=== PATIENT | female | born 1995 ===

== ENCOUNTER 2017-02-23 15:58 | Inpatient (IN) ==
[2017-02-23] MEDS ORDERED: LACTATED RINGERS 1,000 ML IV PRN (16:18)
[2017-02-23] MEDS ORDERED: ONDANSETRON 4 MG/2 ML VIAL IV PRN (16:18)
[2017-02-23] MEDS ORDERED: MEPERIDINE 50 MG/1 ML VIAL IM PRN (16:18)
[2017-02-23] MEDS ORDERED: BUTORPHANOL 1 MG/ML VIAL IV PRN (16:18)
[2017-02-23] MEDS ORDERED: LACTATED RINGERS 1,000 ML IV ONE (16:21)
[2017-02-23] MEDS ORDERED: ONDANSETRON 4 MG/2 ML VIAL IV ONE (16:21)
[2017-02-23] MEDS ORDERED: FAMOTIDINE 20 MG/2 ML VIAL IV ONE (16:21)
[2017-02-23] MEDS ORDERED: ePHEDrine 50 MG/ML AMP IV PRN (16:21)
[2017-02-23] MEDS ORDERED: CITRIC ACID/SODIUM CITRATE 30 ML UDCUP PO ONE (16:21)
[2017-02-23] MEDS ORDERED: hydrOXYzine HCL 25 MG/1 ML VIAL IM PRN (16:21)
[2017-02-23] MEDS ORDERED: diphenhydrAMINE 50 MG/1 ML VIAL IV PRN ×2 (16:21)
[2017-02-23] MEDS ORDERED: PROMETHAZINE 25 MG/1 ML VIAL IM ONE (16:21)
[2017-02-23] MEDS ORDERED: OXYTOCIN/LR 20 UNIT/1,000 ML BAG IV SCH (16:30)
[2017-02-23 16:39] LABS: Basophils % 0.2 % (0.0-0.8); Eosinophils # 0.1 10*3/uL (0.0-0.87); Eosinophils % 0.9 % (0.00-10.9); Hematocrit 30.8 VOL% (35.7-47.0); Hemoglobin 10.6 GM/DL (12.0-16.0); Immature Granulocytes % 0.4 %; Immature Granulocytes Absolute 0.03 #; Lymphocytes # 2.1 10*3/uL (1.4-4.0); Lymphocytes % 25.9 % (21.3-54.2); Mean Corpuscular HGB Conc 34.4 GM/DL (32-36); Mean Corpuscular Hemoglobin 28 PG (27-34); Mean Corpuscular Volume 80.8 FL (87-102); Mean Platelet Volume 10.2 FL (9.6-12.0); Monocytes # 0.5 10*3/uL (0.11-0.8); Monocytes % 6.4 % (1.7-12.7); Neutrophils # 5.4 10*3/uL (1.4-7.4); Neutrophils % 66.2 % (38.7-73.9); Platelet Count 280 T/CUMM (130-400); Red Blood Count 3.81 MC/CUMM (3.8-5.5); Red Cell Distribution Width 13.8 % (9.3-17.3); White Blood Count 8.2 T/CUMM (4-12)
[2017-02-23 17:07] LABS: Alanine Aminotransferase 16 U/L (13-56); Albumin 2.8 G/DL (3.4-5.0); Alkaline Phosphatase 194 U/L (45-117); Aspartate Amino Transferase 21 U/L (0-37); Bilirubin,Total < 0.39 MG/DL (0.2-1.0); Blood Urea Nitrogen 13 MG/DL (7-18); Calcium 8.6 MG/DL (8.5-10.1); Glucose 75 MG/DL (74-106); Osmolality,Calculated 275.5 MOS/KG (273-304); Potassium 4.1 MMOL/L (3.5-5.1); Sodium 139 MMOL/L (136-145); Total Protein 6.8 G/DL (6.4-8.3); Uric Acid 4.9 MG/DL (2.6-6.0)
[2017-02-23 17:28] LABS: Rubella Antibody IgG 5.1 IU/ML
[2017-02-23] MEDS: LACTATED RINGERS 1,000 ML IV SCH (17:57)
--- NOTE | 2017-02-23 18:15 | History & Physical Report ---
Assessment and Plan (1) Active labor Status: Acute Current Visit: Yes History of Present Illness Chief complaint: Active labor, 5 cm History of present illness: Ms. Chapman is a 22 year old female 1 para 0 EDC is a 2417 presented to the office and was examined and found to be 4-1/2-5 cm dilated 90% effaced at a -1 station, patient's heart tones are category 1, no leaking of fluid no vaginal bleeding. Risks and benefits were thoroughly discussed with this patient in full agreement and will be admitted for further management and an epidural when appropriate Home Medications Medication Instructions Recorded Confirmed Type Pnv No.95/Ferrous Fum/Folic AC 1 tablet PO DAILY 02/23/17 02/23/17 History [ Tablet] Allergies Allergy/AdvReac Type Severity Reaction Status Date / Time No Known Allergies Allergy Verified 02/23/17 16:18 Medical,Surgical,& Family Hx - Medical History Reproductive: No history of: Ectopic , Complication - Surgical History Reproductive Surgeries: Patient denies;: Section - Social History Smoking Status: Never smoker Frequency of Alcohol Use: None Type of Drug Use: None Exam - Constitutional General appearance: mild distress - Head Head exam: Present: normal inspection - Eye Eye exam: Present: EOMI Pupils: Present: ELISABETH - ENT ENT exam: Present: normal exam - Neck Neck exam: Present: normal inspection - Cardiovascular Cardiovascular exam: Present: regular rate and rhythm - GI/Abdominal GI/Abdominal exam: Present: normal bowel sounds - Extremities Exam Extremities exam: Present: normal inspection - Back Exam Back exam: Present: normal inspection - Neurological Exam Neurological exam: Present: alert, oriented X3 - Psychiatric Psychiatric exam: Present: normal affect - Skin Skin exam: Present: normal color Results - Labs CBC & BMP: 02/23/17 16:32 02/23/17 16:32 Quality Measures - VTE Contraindication to Pharmacological VTE Prophylaxis: Clinical assessment deems Pt at low risk, no prophalaxis needed
[2017-02-23] MEDS ORDERED: ONDANSETRON 4 MG/2 ML VIAL ONE (19:38)
[2017-02-23] MEDS ORDERED: PROPOFOL 200 MG/20 ML VIAL IV ONE (19:38)
[2017-02-23] MEDS ORDERED: SUCCINYLCHOLINE 200 MG/10 ML VIAL ONE (19:38)
[2017-02-23] MEDS: fentaNYL 2 MCG/ROPIV 0.2% EPID 150 ML EPIDURAL SCH (19:50)
[2017-02-23 21:49] LABS: Apearance,Urine CLEAR (Clear); Bacteria,Urine Occasional /HPF (Few); Bilirubin,Urine Negative (Negative); Blood, Urine Negative (Negative); Glucose,Urine (UA) Negative (Negative); Ketones,Urine 20 mg/dL (Negative); Mucus,Urine Occasional /LPF (Occasional); Nitrite,Urine Negative (Negative); Protein,Urine Negative; RBC,Urine <1 /HPF (0-4); Squamous Epithelial Cell,Urine Occasional /HPF (0-10); Transitional Epi Cells,Urine Occasional /HPF (<1); Urine Color Yellow (Yellow); Urine Specific Gravity 1.024 (1.001-1.035); WBC,Urine <1 /HPF (0-6)
[2017-02-24] MEDS: LACTATED RINGERS 1,000 ML IV SCH ×2 (04:07→12:24)
[2017-02-24] MEDS: fentaNYL 2 MCG/ROPIV 0.2% EPID 150 ML EPIDURAL SCH (07:20)
--- NOTE | 2017-02-24 09:47 | Event Note ---
0935: The patient is 6 cm dilated with bulging POW. Artificial rupture membranes was performed with clear fluid noted. The patient 6 cm dilated/90% effaced/vertex presenting at a -1 station.
[2017-02-24] MEDS ORDERED: OXYTOCIN 10 UNIT/ML VIAL ONE ×2 (17:41→17:42)
[2017-02-24] MEDS ORDERED: METHYLERGONOVINE 0.2 MG/1 ML AMP ONE (17:49)
[2017-02-24] MEDS ORDERED: fentaNYL 100 MCG/2 ML VIAL ONE (18:24)
[2017-02-24 18:25] LABS: Cord Arterial Blood HCO3 20.4 MMOL/L
[2017-02-24 18:29] LABS: Cord Venous Blood HCO3 21.2 MMOL/L; Cord Venous Blood PCO2 46.7 MMHG; Cord Venous Blood PO2 37.7
[2017-02-24] MEDS ORDERED: ACETAMINOPHEN 325 MG TABLET PO PRN (18:42)
[2017-02-24] MEDS ORDERED: ONDANSETRON 4 MG/2 ML VIAL IV PRN (18:42)
[2017-02-24] MEDS ORDERED: OXYTOCIN/LR 20 UNIT/1,000 ML BAG IV ONE ×2 (18:42→20:31)
--- NOTE | 2017-02-24 18:47 | Operative Note ---
Date of procedure: 02/24/17 Procedure: Preoperative diagnosis: Failure to progress, CPD Postoperative diagnosis: Same Anesthesia:[] General anesthesia Estimated blood loss: [] 300 Surgeon: Dr. Hackett Findings: [] Male , It molding, 8 pounds, delivery at 1740 5 PM, Apgars was 9 at 1 minute 9 at 5 minutes, cord blood and cord gas obtained Complications: None Procedure: Low transverse section The patient was taken to the operating suite heart tones were obtained prior to and after regional anesthesia was obtained. She was placed in supine position her abdomen was prepped and draped in usual manner for major abdominal surgery. Through an abdominal incision the skin, subcutaneous, fascial layer and peritoneal the abdomen was entered. The bladder flap was created and a low transverse incision was made.. Fluid was clear and normal amount X, Apgars, the placenta was delivered and sent to lab for further evaluation. Injected with intrauterine Pitocin. The first layer of the uterus was closed with #1 Vicryl in a continuous locking manner. Close to imbricate the first layer with #1 Vicryl. The peritoneum was approximated with #2-0 Vicryl.[] All the last sponges and instruments were accounted for -2.) #2-0 Vicryl. Fascia was approximated with #0-0 Maxon.. The skin was approximated with evangelina. She tolerated procedure well and was taken to recovery room in stable condition. Surgeon / Physician: Genoveva Hackett Results - Labs CBC & BMP: 02/23/17 16:32 02/23/17 16:32 Discharge Plan - Discharge Medications No Action Pnv No.95/Ferrous Fum/Folic AC [ Tablet] 1 tablet PO DAILY - Follow Up or Referral - Forms/Instructions
[2017-02-24] MEDS ORDERED: ONDANSETRON 4 MG/2 ML VIAL IV ONE (19:05)
[2017-02-24] MEDS ORDERED: MEPERIDINE 25 MG/1 ML VIAL IV PRN (19:05)
[2017-02-24] MEDS ORDERED: diphenhydrAMINE 50 MG/1 ML VIAL IV ONE (19:05)
--- NOTE | 2017-02-24 19:57 | Anesthesia Post-Op ---
Anesthesia Post OP - Post Ansesthetic Evaluation Patient seen in post op: Yes Resp: within normal limits CV: within normal limits Mental: within normal limits Temp: within normal limits [id number]: within normal limits Nausea and Vomiting: within normal limits Pain: within normal limits
[2017-02-24] MEDS ORDERED: HYDROmorphone PCA 30 MG/30 ML SYRINGE IV SCH (20:00)
[2017-02-25] MEDS: SIMETHICONE CHEW 80 MG TABLET PO PRN ×2 (04:40→21:38)
[2017-02-25 06:27] LABS: Basophils % 0.1 % (0.0-0.8); Hematocrit 22.7 VOL% (35.7-47.0); Immature Granulocytes % 0.5 %; Lymphocytes # 1.8 10*3/uL (1.4-4.0); Lymphocytes % 8.2 % (21.3-54.2); Mean Corpuscular HGB Conc 34.4 GM/DL (32-36); Mean Corpuscular Hemoglobin 28 PG (27-34); Mean Corpuscular Volume 79.9 FL (87-102); Mean Platelet Volume 10.1 FL (9.6-12.0); Monocytes # 1.1 10*3/uL (0.11-0.8); Monocytes % 5.3 % (1.7-12.7); Neutrophils # 18.3 10*3/uL (1.4-7.4); Neutrophils % 85.9 % (38.7-73.9); Red Cell Distribution Width 13.9 % (9.3-17.3)
[2017-02-25 06:35] LABS: Hemoglobin 7.8 GM/DL (12.0-16.0); Platelet Count 212 T/CUMM (130-400); Red Blood Count 2.84 MC/CUMM (3.8-5.5); White Blood Count 21.4 T/CUMM (4-12)
[2017-02-25 07:18] LABS: Band Neutrophils 5 % (0-10); Hypochromasia 1+; Lymphocytes 4 % (20-55); Microcytosis 1+; Ovalocytes Slight; Platelet Estimate Adequate; Segmented Neutrophils 85 % (50-85); Total Cells Counted 100
[2017-02-25] MEDS: IBUPROFEN 800 MG TABLET PO PRN ×2 (07:54→18:23)
[2017-02-25] MEDS ORDERED: RHO(D) IMMUNE GLOBULIN 300 MCG SYRINGE IM ONE (08:00)
[2017-02-25] MEDS: DOCUSATE SODIUM 100 MG CAPSULE PO SCH ×2 (09:21→21:38)
[2017-02-25] MEDS: MAGNESIUM HYDROXIDE SUSP 30 ML UDCUP PO PRN ×2 (09:21→21:38)
--- NOTE | 2017-02-25 09:21 | Progress Note ---
Assessment and Plan (1) Active labor Status: Acute Current Visit: Yes Family Medicine PN Sub Interval history: Status post section secondary to failure to progress Lungs are clear, cardiac exam benign, abdomen soft appropriately tender. Incision sites intact uterus nice and firm Extremities well with no limits and neurologic grossly intact Assessment and plan We will continue with present therapy possible discharge in a.m. Exam (Progress Note) - Constitutional Vitals: Period Temp Pulse Resp BP Sys/[place] Pulse Ox Last 24 Hr 97.3 F-100.3 F 75-110 18-20 132-158/68-90 96-100 Results - Labs CBC & BMP: 02/25/17 06:17 02/23/17 16:32 Quality Measures - VTE Contraindication to Pharmacological VTE Prophylaxis: Clinical assessment deems Pt at low risk, no prophalaxis needed
[2017-02-25] MEDS: FERROUS SULFATE 325 MG TABLET PO SCH ×3 (09:25→21:38)
[2017-02-25] MEDS: MULTIVITAMIN (PRENATAL) TABLET PO SCH (09:25)
[2017-02-25] MEDS: BENZOCAINE/MENTHOL LOZENGE 18/BOX PO PRN (22:07)
[2017-02-26] MEDS: BENZOCAINE/MENTHOL LOZENGE 18/BOX PO PRN (01:58)
[2017-02-26] MEDS: IBUPROFEN 800 MG TABLET PO PRN ×2 (02:17→17:33)
[2017-02-26] MEDS: DOCUSATE SODIUM 100 MG CAPSULE PO SCH ×3 (09:26→21:53)
[2017-02-26] MEDS: FERROUS SULFATE 325 MG TABLET PO SCH ×3 (09:26→21:52)
[2017-02-26] MEDS: MAGNESIUM HYDROXIDE SUSP 30 ML UDCUP PO PRN (09:26)
[2017-02-26] MEDS: SIMETHICONE CHEW 80 MG TABLET PO PRN ×2 (09:26→17:34)
[2017-02-26] MEDS: METOCLOPRAMIDE 10 MG TABLET PO PRN ×2 (09:26→17:35)
[2017-02-26] MEDS: MULTIVITAMIN (PRENATAL) TABLET PO SCH (09:33)
--- NOTE | 2017-02-26 13:00 | Progress Note ---
Assessment and Plan (1) Active labor Status: Acute Current Visit: Yes Family Medicine PN Sub Interval history: day #2 Status post section Patient is still complains of incisional discomfort and abdominal discomfort. States that it is improving. She has had a bowel movement, and also voiding well. Extremities well with no limits and neurologic grossly intact Assessment plan Possible discharge in a.m. Exam (Progress Note) - Constitutional Vitals: Period Temp Pulse Resp BP Sys/[place] Pulse Ox Last 24 Hr 97.1 F-98.2 F 69-92 18-20 116-135/58-80 95-98 Results - Labs CBC & BMP: 02/25/17 06:17 02/23/17 16:32 Quality Measures - VTE Contraindication to Pharmacological VTE Prophylaxis: Clinical assessment deems Pt at low risk, no prophalaxis needed Specialty Discharge - Follow Up or Referrals Follow up with: Genoveva Hackett MD [Physician] - 03/11/17 1:45 pm
[2017-02-26] MEDS: SODIUM CHLORIDE 0.9% 1,000 ML IV SCH ×2 (22:10→22:11)
[2017-02-26] MEDS: LACTATED RINGERS 1,000 ML IV SCH ×3 (22:10→22:12)
[2017-02-27] MEDS: IBUPROFEN 800 MG TABLET PO PRN (04:16)
[2017-02-27] MEDS: LACTATED RINGERS 1,000 ML IV SCH ×2 (04:17→11:29)
[2017-02-27 07:47] VITALS: BP 123/69
[2017-02-27] MEDS: MULTIVITAMIN (PRENATAL) TABLET PO SCH (09:01)
[2017-02-27] MEDS: FERROUS SULFATE 325 MG TABLET PO SCH ×2 (09:01→17:49)
[2017-02-27] MEDS: DOCUSATE SODIUM 100 MG CAPSULE PO SCH (09:05)
[2017-02-27] MEDS ORDERED: DIPH/TET/ACEL PERT BOOSTER VACCINE 0.5 ML VIAL IM ONE (10:49)
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
[2017-02-27] MEDS ORDERED: MEASLES/MUMPS/RUBELLA VACCINE 0.5 ML VIAL SUBCUT ONE (17:27)
== END 2017-02-27 17:50 | disposition home or self-care (01) | DRG 540 ==
LOC: N.LD 15:58 → N.OB 02-24 21:48
PROVIDERS: ADMIT Obstetrics & Gynecology; ATTEND Obstetrics & Gynecology
PROC: LDCSECT (ICD-10-PCS; 2017-02-24 17:15)